=== PATIENT | male | born 1945 | race Caucasian/White ===

== ENCOUNTER → 2020-02-27 | Outpatient (CLI) | payer MEDICARE, BC, OTHER | END | disposition home or self-care (01) | LOC: CFH 08:57 | PROVIDERS: ATTEND Ophthalmology | DX: I65.23 Occlusion and stenosis of bilateral carotid arteries (principal); H47.019 Ischemic optic neuropathy, unspecified eye | CPT/HCPCS: 93880 ==

== ENCOUNTER 2020-06-04 07:48 | Outpatient (CLI) | payer MEDICARE, BC, OTHER ==
[2020-06-04 12:55] LABS: ALBUMIN 4.1 g/dL (3.4-5.0); ANION GAP 5 mmol/L (5-15); CALCIUM 9.4 mg/dL (8.5-10.1); CHLORIDE 111 mmol/L (98-107)
[2020-06-04 13:01] LABS: ALANINE AMINOTRANSFERASE 35 U/L (12-78); ALKALINE PHOSPHATASE 56 U/L (45-117); CHOL/HDL RATIO 2.1; CHOLESTEROL, TOTAL 125 mg/dL (140-239); CREATININE 1.01 mg/dL (0.7-1.3); HDL CHOL % 48 % (26-37); HDL CHOLESTEROL (DIRECT) 60 mg/dL (40-60); LDL CHOLESTEROL,CALCULATED 57 mg/dL (54-169); TOTAL PROTEIN 7.1 g/dL (6.4-8.2); TRIGLYCERIDES 39 mg/dL (50-200); VLDL CHOLESTEROL 8 mg/dL (0-25)
== END 2020-06-04 23:59 | disposition home or self-care (01) ==
LOC: CFH 07:48
PROVIDERS: ATTEND Internal Medicine Cardiovascular Disease
DX: I08.8 Other rheumatic multiple valve diseases (principal); E78.5 Hyperlipidemia, unspecified; I10 Essential (primary) hypertension; I49.3 Ventricular premature depolarization; I49.9 Cardiac arrhythmia, unspecified
CPT/HCPCS: 36415; 80053; 80061; 93306